=== PATIENT | female | born 1975 | race Caucasian/White ===

== ENCOUNTER 2023-12-18 01:39 | Emergency (ER) | payer MEDICAID ==
[~2023-12-18] VITALS: Ht 162.6 cm; Wt 63.0 kg
[2023-12-18 01:55] VITALS: O2SAT 100
[2023-12-18 04:06] LABS: CARBON DIOXIDE 25 mEq/L (21-32); CHLORIDE 105 mEq/L (98-107); POTASSIUM 3.8 mEq/L (3.5-5.1); SODIUM 136 mEq/L (136-145)
[2023-12-18 04:07] LABS: CALCIUM 8.9 mg/dL (8.7-10.4)
[2023-12-18 04:12] LABS: CREATININE 0.8 mg/dL (0.6-1.0); GLUCOSE 120 mg/dL (70-105); UREA NITROGEN BLOOD 13 mg/dL (9-23)
[2023-12-18 04:14] LABS: ALANINE AMINOTRANSFERASE 22 IU/L (10-49); ALBUMIN 4.6 g/dL (3.2-4.8); ASPARTATE AMINOTRANSFERASE 33 IU/L (<34); BILIRUBIN TOTAL 1.4 mg/dL (0.1-1.0)
[2023-12-18 04:17] LABS: HCG SCREEN NEGATIVE
[2023-12-18] MEDS: ONDANSETRON HCL 4MG/2ML INJ IV STA (05:06)
[2023-12-18] MEDS: SODIUM CHLORIDE 0.9% 1,000 ML IV ONE (05:07)
[2023-12-18] MEDS: FENTANYL CITRATE/PF 50MCG/ML 2ML VIAL IV ONE (05:08)
[2023-12-18 06:00] VITALS: BP 112/75; PULSE 86; RESP 18; TEMP 98.1
[2023-12-18] MEDS: IOHEXOL-300 100 ML BOTTLE ONE (06:05)
[2023-12-18 06:08] LABS: HEMATOCRIT. 35.2 % (36.0-48.0); HEMOGLOBIN. 11.8 g/dL (12.0-16.0); MEAN CORPUSCULAR HEMOGLOBIN 30.1 pg (28.0-32.0); MEAN CORPUSCULAR HGB CONC 33.6 g/dL (31.0-37.0); MEAN CORPUSCULAR VOLUME 89.3 fL (81.0-99.0); MEAN PLATELET VOLUME 7.4 fl (7.4-10.4); PLATELET 318 x1000/uL (130-400); RED BLOOD CELL COUNT 3.94 mill/uL (4.2-5.4); RED CELL DISTRIBUTION WIDTH 13.7 % (11.6-14.6); WHITE BLOOD COUNT 16.6 x1000/uL (4.5-11.0)
[2023-12-18 06:13] LABS: DIFFERENTIAL COMMENT 1
[2023-12-18] MEDS ORDERED: IBUP-2029 MT (06:15)
[2023-12-18 11:06] LABS: PLATELET ESTIMATE NORMAL
== END 2023-12-18 06:40 | disposition home or self-care (01) ==
LOC: ER 01:39
DX: S29.9XXA Unspecified injury of thorax, initial encounter (principal); S39.91XA Unspecified injury of abdomen, initial encounter; M54.2 Cervicalgia; V49.9XXA Car occupant (driver) (passenger) injured in unspecified traffic accident, initial encounter; Y93.89 Activity, other specified; Y92.89 Other specified places as the place of occurrence of the external cause; Y99.8 Other external cause status
CPT/HCPCS: 80053; 84703; 83690; 85025; 36415; 71045; 70450; 71260; 72125; 74177; 96361; 96374; 96375; 99285; J3010; Q9967; J2405; J7030; Z7610 ×3

== ENCOUNTER 2025-02-11 07:38 | Emergency (ER) | payer MEDICAID, OTHER ==
[~2025-02-11] VITALS: Ht 157.5 cm; Wt 102.0 kg
[~2025-02-11 07:38] MED LIST: IBUP-2029 MT
[2025-02-11 08:01] VITALS: TEMP 36.8; O2SAT 100
[2025-02-11] MEDS ORDERED: AMOX1TAB16 MT (09:34)
[2025-02-11] MEDS: IBUPROFEN 600MG TABLET PO ONE (09:59)
[2025-02-11 10:01] VITALS: BP 135/73; PULSE 54; RESP 16; O2SAT 100
== END 2025-02-11 10:02 | disposition home or self-care (01) ==
LOC: ER 07:38
DX: K08.89 Other specified disorders of teeth and supporting structures (principal); Z79.899 Other long term (current) drug therapy
CPT/HCPCS: 99283

== ENCOUNTER 2025-04-07 12:30 | Emergency (ER) | payer OTHER ==
[~2025-04-07] VITALS: Ht 154.9 cm; Wt 52.0 kg
[~2025-04-07 12:30] MED LIST changes: +AMOX1TAB16 MT
[2025-04-07 12:42] VITALS: TEMP 36.9; O2SAT 100
[2025-04-07 13:25] LABS: BASOPHILS % 0.5 % (0.0-2.0); EOSINOPHILS % 2.2 % (0.0-5.0); HEMATOCRIT. 34.7 % (36.0-48.0); HEMOGLOBIN. 11.8 g/dL (12.0-16.0); LYMPHOCYTES % 44.9 % (20.0-50.0); MEAN PLATELET VOLUME 7.0 fl (7.4-10.4); MONOCYTES % 7.4 % (2.0-8.0); NEUTROPHILS % 45.0 % (40.0-76.0); PLATELET 333 x1000/uL (130-400); RED BLOOD CELL COUNT 4.06 mill/uL (4.2-5.4); RED CELL DISTRIBUTION WIDTH 13.4 % (11.6-14.6)
[2025-04-07 13:35] LABS: CREATININE 0.7 mg/dL (0.6-1.0)
[2025-04-07 13:36] LABS: UREA NITROGEN BLOOD 22 mg/dL (9-23)
[2025-04-07] MEDS: KETOROLAC 30MG/ML VIAL IM ONE (16:09)
[2025-04-07 16:17] LABS: CLARITY URINE CLEAR (CLEAR); COLOR URINE YELLOW (YELLOW); GLUCOSE URINE NEGATIVE (NEGATIVE); KETONES URINE TRACE (NEGATIVE); LEUKOCYTE ESTERASE URINE NEGATIVE (NEGATIVE); NITRITE URINE NEGATIVE (NEGATIVE); OCCULT BLOOD URINE NEGATIVE (NEGATIVE); PH URINE 5.0 (4.5-8.0); PROTEIN URINE NEGATIVE (NEGATIVE); SPECIFIC GRAVITY URINE 1.029 (1.005-1.030); UROBILINOGEN URINE 0.2 E.U./dL (0.2-1.0)
[2025-04-07 16:33] LABS: HCG SCREEN NEGATIVE
[2025-04-07] MEDS ORDERED: ACET-3800 MT (17:47)
[2025-04-07 18:06] VITALS: BP 131/76; PULSE 73; RESP 16; O2SAT 99
== END 2025-04-07 18:07 | disposition home or self-care (01) ==
LOC: ER 12:30
DX: R51.9 Headache, unspecified (principal); Z79.899 Other long term (current) drug therapy
CPT/HCPCS: 80048; 81003; 84703; 85025; 36415; 96372; 99283; J1885; Z7610; 99285